=== PATIENT | male | born 1960 | race Caucasian/White ===

== ENCOUNTER 2017-11-07 09:58 | Day surgery (SDC) | payer MEDICARE, OTHER ==
[2017-10-30 12:31] LABS: ADD MAN DIFF? NO
[2017-10-30 12:34] LABS: WHITE BLOOD COUNT 10.2 10^3/ul (4.8-10.8)
[2017-10-30 12:34] LABS: BASOPHIL # 0.1 10^3/ul (0.0-0.1); BASOPHILS % 0.8 % (0.0-2.0); EOSINOPHILS # 0.3 10^3/ul (0.0-0.5); EOSINOPHILS % 2.8 % (0.0-7.0); HEMATOCRIT 49.6 % (42.0-52.0); HEMOGLOBIN 16.3 g/dl (14.0-18.0); LYMPHOCYTES # 3.3 10^3/ul (0.8-2.9); LYMPHOCYTES % 32.8 % (15.0-51.0); MEAN CORPUSCULAR HEMOGLOBIN 28.1 pg (29.0-33.0); MEAN CORPUSCULAR HGB CONC 32.9 g/dl (32.0-37.0); MEAN CORPUSCULAR VOLUME 85.5 fl (82.0-101.0); MEAN PLATELET VOLUME 10.3 fl (7.4-10.4); MONOCYTE # 0.8 10^3/ul (0.3-0.9); MONOCYTES % 8.2 % (0.0-11.0); NEUTROPHIL # 5.6 10^3/ul (1.6-7.5); NEUTROPHILS % 55.1 % (39.0-77.0); PLATELET COUNT 249 10^3/UL (140-415); RED CELL DISTRIBUTION WIDTH 17.4 % (11.5-14.5)
[2017-10-30 12:57] LABS: ANION GAP 14 (8-16); BLOOD UREA NITROGEN 16 mg/dl (7-20); CALCIUM 9.8 mg/dl (8.4-10.2); CARBON DIOXIDE 27 mmol/L (21-31); CHLORIDE 104 mmol/L (97-110); CREATININE 0.76 mg/dl (0.61-1.24); GLUCOSE 79 mg/dl (70-220); POTASSIUM 4.1 mmol/L (3.5-5.1); SODIUM 141 mmol/L (135-144)
[2017-10-30 13:06] LABS: PROTIME 13.3 Sec (11.9-14.9)
[2017-10-30 13:07] LABS: PARTIAL THROMBOPLASTIN TIME 35.3 Sec (25.0-35.0)
[~2017-11-07 09:58] MED LIST: ATROPINE 1 MG/10 ML SYRINGE IV; DIPHENHYDRAMINE 50 MG INJ IV; EPHEDrine SULFATE 50 MG/5 ML SYG IV; FENTAnyl 50 MCG/ML VIAL IV; LABETALOL HCL 20MG INJ IV; MEPERIDINE 25 MG INJ IV; MIDAZOLAM 1 MG/ML 2 ML INJ IV; ONDANSETRON 4 MG INJ IV; hydrALAzine 20 MG INJ IV
[2017-11-07] MEDS ORDERED: POLYMYXIN/BACITRACIN 1L IRRIG (13:39)
[2017-11-07] MEDS ORDERED: LIDOCAINE 2% (SDV) 5 ML INJ (14:00)
[2017-11-07] MEDS ORDERED: ROCURONIUM 50 MG INJ (14:00)
[2017-11-07] MEDS ORDERED: GLYCOPYRROLATE 1 MG INJ (14:00)
[2017-11-07] MEDS ORDERED: NEOSTIGMINE 3 MG/3 ML SYRINGE (14:00)
[2017-11-07] MEDS ORDERED: FENTAnyl 50 MCG/ML VIAL (14:00)
[2017-11-07] MEDS ORDERED: PROPOFOL 20 ML (14:00)
[2017-11-07] MEDS ORDERED: MIDAZOLAM 1 MG/ML 2 ML INJ (14:00)
[2017-11-07] MEDS ORDERED: DEXAMETHASONE 4 MG/ML 1 ML INJ (14:04)
[2017-11-07] MEDS ORDERED: ONDANSETRON 4 MG INJ (14:04)
[2017-11-07] MEDS ORDERED: HYDROmorphONE (0.2 MG/ML) 10ML SYG IV ×2 (14:58→15:30)
[2017-11-07] MEDS ORDERED: FENTAnyl 50 MCG/ML VIAL IV ×3 (15:30)
[2017-11-07] MEDS: HYDROmorphONE (0.2 MG/ML) 10ML SYG IV ×2 (15:36→15:48)
[2017-11-08] MEDS ORDERED: LIDOCAINE 2% (SDV) 5 ML INJ (06:41)
[2017-11-08] MEDS ORDERED: PROPOFOL 20 ML (06:41)
[2017-11-08] MEDS ORDERED: FENTAnyl 50 MCG/ML VIAL (06:42)
[2017-11-08] MEDS ORDERED: MIDAZOLAM 1 MG/ML 2 ML INJ (06:42)
[2017-11-08] MEDS ORDERED: DEXAMETHASONE 4 MG/ML 1 ML INJ (06:43)
[2017-11-08] MEDS ORDERED: ACETAMINOPHEN 1000MG/100ML IV 0 ML (06:43)
[2017-11-08] MEDS ORDERED: ONDANSETRON 4 MG INJ (06:43)
[2017-11-08] MEDS ORDERED: FAMOTIDINE 20 MG INJ (06:43)
[2017-11-08] MEDS ORDERED: ROCURONIUM 50 MG INJ (06:43)
== END 2017-11-07 17:35 | disposition home or self-care (01) ==
LOC: REC 09:58 → SDS 09:58
DX: S72.91XS Unspecified fracture of right femur, sequela (principal); M97 Periprosthetic fracture around internal prosthetic joint; W19.XXXS Unspecified fall, sequela; Z53.9 Procedure and treatment not carried out, unspecified reason; I25.10 Atherosclerotic heart disease of native coronary artery without angina pectoris; I10 Essential (primary) hypertension; E78.5 Hyperlipidemia, unspecified; I42.9 Cardiomyopathy, unspecified; Z95.810 Presence of automatic (implantable) cardiac defibrillator; J44.9 Chronic obstructive pulmonary disease, unspecified
CPT/HCPCS: 71010; 80048; 85025; 85610; 85730; 86850; 86900; 86901; 86920; 93005